=== PATIENT | female | born 1990 | race Caucasian/White ===

== ENCOUNTER 2021-02-04 20:53 | Emergency (ER) | payer OTHER ==
[~2021-02-04] VITALS: Ht 175.3 cm; Wt 78.5 kg
[2021-02-05] MEDS ORDERED: PROTONIX40 MG PO (06:29)
[2021-02-05] MEDS ORDERED: PEPCID40 MG PO (06:29)
[2021-02-05] MEDS ORDERED: ZOFRAN8 MG PO (06:29)
== END 2021-02-05 06:50 ==
LOC: ER 20:53
DX: K29.00 Acute gastritis without bleeding (principal)

== ENCOUNTER → 2021-09-19 | Emergency (ER) | payer OTHER ==
[~2021-09-19] VITALS: Ht 175.3 cm; Wt 72.6 kg
[~2021-09-19] MED LIST: INTESTINEX680 M1 PO; PEPCID AC20 MG PO; PEPCID40 MG PO; PROTONIX40 MG PO; ZOFRAN8 MG PO
== END | disposition home or self-care (01) ==
LOC: ER 04:55
DX: K52.89 Other specified noninfective gastroenteritis and colitis (principal); Z20.828 Contact with and (suspected) exposure to other viral communicable diseases

== ENCOUNTER 2021-10-31 01:04 | Emergency (ER) | payer OTHER ==
[~2021-10-31] VITALS: Ht 175.3 cm; Wt 72.6 kg
== END 2021-10-31 09:46 | disposition home or self-care (01) ==
LOC: ER 01:04
DX: R11.10 Vomiting, unspecified (principal); F41.9 Anxiety disorder, unspecified

== ENCOUNTER 2021-11-02 01:42 | Emergency (ER) | payer OTHER ==
[~2021-11-02] VITALS: Ht 175.3 cm; Wt 72.6 kg
[2021-11-02] MEDS ORDERED: NORFLEX100MG PO (07:53)
[2021-11-02] MEDS ORDERED: CARAFATE1 GM PO (07:53)
[2021-11-02] MEDS ORDERED: PEPCID AC20 MG PO (07:53)
== END 2021-11-02 08:43 | disposition home or self-care (01) ==
LOC: ER 01:42
DX: K29.70 Gastritis, unspecified, without bleeding (principal); R10.13 Epigastric pain; R11.2 Nausea with vomiting, unspecified; M54.89 Other dorsalgia

== ENCOUNTER 2023-11-12 11:51 | Emergency (ER) | payer OTHER ==
[~2023-11-12] VITALS: Ht 175.3 cm; Wt 96.2 kg
[~2023-11-12 11:51] MED LIST changes: +CARAFATE1 GM PO; +NORFLEX100MG PO
[2023-11-12] MEDS ORDERED: PRISTIQ25 MG PO (12:45)
[2023-11-12] MEDS ORDERED: CLONAZEPAM2 MG PO (12:46)
[2023-11-12] MEDS ORDERED: PRISTIQ ER100 MG PO (12:46)
[2023-11-12 14:16] LABS: HEMATOCRIT 38.8 % (36.0-45.00); MEAN CELL VOLUME 88.5 fL (80.00-100.00); MEAN CORPUSCULAR HEMOGLOBIN 29.6 pg (27.00-32.0); MEAN CORPUSCULAR HGB CONC 33.5 g/dl (32.0-36.0); PLATELET COUNT 202 K/uL (150-450); RED BLOOD COUNT 4.38 M/uL (4.00-6.00); RED CELL DISTRIBUTION WIDTH 13.7 % (11.5-14.5)
[2023-11-12 14:44] LABS: ERYTHROCYTE SEDIMENTATION RATE 8 mm/hr
[2023-11-12 14:53] LABS: CREATININE SERUM 0.71 mg/dL (0.55-1.02); GFR 93.68; POTASSIUM 4.28 mEq/L (3.5-5.1)
[2023-11-12] MEDS ORDERED: ALOE VERA TOP (16:52)
[2023-11-12] MEDS ORDERED: ALA-CORT28.4 GM TOP (16:52)
== END 2023-11-12 17:12 | disposition home or self-care (01) ==
LOC: ER 11:51
PROVIDERS: General Practice
DX: R21 Rash and other nonspecific skin eruption (principal)

== ENCOUNTER 2024-07-19 04:24 | Emergency (ER) | payer OTHER ==
[~2024-07-19] VITALS: Ht 175.3 cm; Wt 90.7 kg
[~2024-07-19 04:24] MED LIST changes: +ALA-CORT28.4 GM TOP; +ALOE VERA TOP; +CLONAZEPAM2 MG PO; +PRISTIQ ER100 MG PO; +PRISTIQ25 MG PO
[2024-07-19] MEDS ORDERED: EFFEXOR XR75 MG PO (04:50)
[2024-07-19] MEDS ORDERED: ATIVAN1 M1 PO (04:50)
[2024-07-19] MEDS ORDERED: TRAZODONE HCL50 MG PO (04:51)
[2024-07-19] MEDS ORDERED: BUSPIRONE HCL5 MG (04:51)
[2024-07-19] MEDS ORDERED: PROMETHAZINE HCL 50 MG/ML AMPUL IM STA (06:46)
[2024-07-19] MEDS ORDERED: FAMOTIDINE/PF 20 MG/2 ML VIAL IV PUSH STA (06:47)
[2024-07-19] MEDS ORDERED: 0.9 % SODIUM CHLORIDE 1,000 ML IV ONE (07:00)
[2024-07-19] MEDS ORDERED: FAMOTIDINE/PF 20 MG/2 ML VIAL ONE (07:13)
[2024-07-19] MEDS ORDERED: PROMETHAZINE HCL 50 MG/ML AMPUL IM ONE (07:13)
[2024-07-19 07:27] LABS: HEMATOCRIT 42.4 % (36.0-45.00); HEMOGLOBIN 14.2 g/dL (12.0-15.00); MEAN CELL VOLUME 88.1 fL (80.00-100.00); MEAN CORPUSCULAR HEMOGLOBIN 29.4 pg (27.00-32.0); MEAN CORPUSCULAR HGB CONC 33.4 g/dl (32.0-36.0); PLATELET COUNT 300 K/uL (150-450); RED BLOOD COUNT 4.81 M/uL (4.00-6.00); RED CELL DISTRIBUTION WIDTH 13.9 % (11.5-14.5)
[2024-07-19 08:00] LABS: ALKALINE PHOSPHATASE 85 U/L (50-136); ALT/SGPT 27 U/L (12-78); AMYLASE 98 U/L (25-115); ANION GAP 12 (10.0-20.0); AST/SGOT 20 U/L (15-37); BILIRUBIN TOTAL 0.44 mg/dL (0.3-1.2); BLOOD UREA NITROGEN 15 mg/dL (7-18); BUN CREA RATIO 17 (7.0-25.0); CARBON DIOXIDE 26 mEq/L (21-32); CHLORIDE 106 mmol/L (98-107); GFR 71.25; GLOBULINA 4.1 G/DL (2.4-3.5); GLUCOSE FASTING 105 mg/dL (65-100); OSMOLALITY SERUM 282 MOSM/KG (275-295); POTASSIUM 3.27 mEq/L (3.5-5.1); SODIUM 141 mmol/L (136-145); TOTAL PROTEIN 8.1 gm/dL (6.4-8.2)
[2024-07-19 08:02] LABS: HCG QUANTITATIVE < 1 mUI/mL (1-3); LIPASE 115 U/L (13-75)
[2024-07-19 08:14] LABS: PH,URINE 5.5 (5.0-8.0); URINE APPEARANCE Turbid; URINE BILIRRUBIN Small (NEGATIVE); URINE BLOOD NHT; URINE COLOR Dark Yellow; URINE GLUCOSE Negative (NEGATIVE); URINE KETONE 15 (NEGATIVE); URINE LEUKOCYTE Small; URINE NITRATE Negative
[2024-07-19 08:19] LABS: URINE RBC 18.1 uL (0.0-20.8); URINE WBC 928.6 uL (0.0-23.2)
[2024-07-19 08:41] LABS: URINE BACTERIA > 9821.5 uL (0.0-1933); URINE CRYSTALS MANY /HPF; URINE PROTEIN 100 (NEGATIVE)
[2024-07-19] MEDS ORDERED: METOCLOPRAMIDE HCL 5 MG/ML VIAL ONE (09:40)
[2024-07-19] MEDS ORDERED: METOCLOPRAMIDE HCL 10 MG in DEXTROSE 5 % IN WATER 50 ML IV ONE (09:45)
[2024-07-19] MEDS ORDERED: PEPCID AC20 MG PO (10:55)
[2024-07-19] MEDS ORDERED: ONDANSETRON ODT8 MG PO (10:55)
== END 2024-07-19 11:36 | disposition home or self-care (01) ==
LOC: ER 04:25
PROVIDERS: General Practice
DX: R11.10 Vomiting, unspecified (principal); R50.9 Fever, unspecified; R11.0 Nausea; F41.9 Anxiety disorder, unspecified